=== PATIENT | male | born 1985 | race African-American/Black ===

== ENCOUNTER 2017-10-26 16:44 | Emergency (ER) | payer OTHER ==
[~2017-10-26] VITALS: Ht 180.3 cm; Wt 119.8 kg
[~2017-10-26 16:44] MED LIST: HYDROCODONE-AP1 EAC6 PO; NOHOMEMEDICATIONS; NORCO 5-325 TA1 EACH PO; PENICILLIN VK500 MG PO
[2017-10-26] MEDS ORDERED: PREDNISONE 10 M10 MG PO (18:14)
[2017-10-26 18:20] VITALS: BP 142/86
== END 2017-10-26 18:21 | disposition home or self-care (01) ==
LOC: M.ERS 16:44
DX: M77.9 Enthesopathy, unspecified (principal); F17.200 Nicotine dependence, unspecified, uncomplicated